=== PATIENT | male | born 1960 | race Caucasian/White ===

== ENCOUNTER 2017-07-08 03:11 | Emergency (ER) | payer SELFPAY ==
[~2017-07-08] VITALS: Ht 175.3 cm; Wt 99.9 kg
[2017-07-08 03:12] VITALS: BP 150/76; PULSE 99; RESP 16; TEMP 97.9; O2SAT 96
[2017-07-08] MEDS ORDERED: DICL75TA PO (03:34)
[2017-07-08] MEDS ORDERED: CYCL10TA PO (03:34)
--- NOTE | 2017-07-08 03:44 | PD ---
HPI Chief Complaint: Back/ Neck Pain or Injury Time Seen by Provider: 03:32 Travel History International Travel<30 days: No Contact w/Intl Traveler<30days: No Traveled to known affect area: No History of Present Illness HPI 57-year-old white male presents to emergency department for evaluation of a slip and fall the shower earlier this evening. He states that he had fallen back striking his head on a bottle of avocado shampoo. The patient states that he's having pain in his neck. He also had struck his left forearm and left mariano. He denies syncope. No nausea or vomiting. He states the pain is mild. Denies any focal numbness, tingling or weakness. PFSH Past Medical History Narrative Medical Bipolar, depression, neck injury with herniated disks Bipolar Disorder: Yes Depression: Yes Diminished Hearing: No Tetanus Vaccination: < 5 Years Past Surgical History Narrative Surgical Tonsillectomy Oral Surgery: Yes (WISDOM TEETH) Tonsillectomy: Yes Social History Alcohol Use: Yes Tobacco Use: No Substance Use: No Allergies-Medications (Allergen,Severity, Reaction): Coded Allergies: bee venom protein (honey bee) (Verified Allergy, Intermediate, Swelling, 07/08/17) Reported Meds & Prescriptions Reported Meds & Active Scripts Active Flexeril (Cyclobenzaprine HCl) 10 Mg Tab 10 Mg PO TID Diclofenac Sodium DR (Diclofenac Sodium) 75 Mg Tabdr 75 Mg PO BID Review of Systems General / Constitutional: No: Fever Eyes: No: Visual changes HENT: Positive: Neck Stiffness, Neck Pain, Other (mild dizziness), No: Headaches, Vertigo, Lightheadedness Cardiovascular: No: Chest Pain or Discomfort Respiratory: No: Shortness of Breath Gastrointestinal: No: Nausea, Vomiting, Diarrhea, Abdominal Pain Genitourinary: No: Dysuria Musculoskeletal: Positive: Pain, No: Myalgias, Arthralgias, Limited ROM, Weakness Skin: No Rash Neurologic: No: Weakness Psychiatric: No: Depression Endocrine: No: Polydipsia Hematologic/Lymphatic: No: Easy Bruising Physical Exam Narrative GENERAL: Well-developed, well-nourished in no apparent distress. Nontoxic appearing. Patient is joking with the nursing staff. He ambulates freely. He moves all his extremities in a coordinated fashion. Patient appears to be under the influence of alcohol. HEAD: Normocephalic, atraumatic. EYES: Pupils equal round and reactive. Extraocular motions intact. No scleral icterus. No injection or drainage. ENT: Nose clear. Throat without erythema, tonsillar hypertrophy or exudate. Uvula midline. Airway patent. NECK: Trachea midline. Supple, nontender, moves head freely. No central bony tenderness or spasm. CARDIOVASCULAR: Regular rate and rhythm without murmurs, gallops, or rubs. RESPIRATORY: Clear to auscultation. Breath sounds equal bilaterally. No wheezes , rales, or rhonchi. GASTROINTESTINAL: Abdomen soft, non-tender, nondistended. No hepato-splenomegaly , or palpable masses. No guarding. EXTREMITIES: No clubbing, cyanosis, or edema. No joint tenderness. There is a small abrasion to the left lower leg as well as the left forearm. BACK: Nontender without deformity. No flank tenderness. NEUROLOGICAL: Awake, alert and oriented x 3 .Cranial nerves grossly intact. Motor and sensory grossly within normal limits. Normal speech. Data Data Last Documented VS Vital Signs Date Time Temp Pulse Resp B/P (MAP) Pulse Ox O2 Delivery O2 Flow Rate FiO2 07/08/17 03:12 97.9 99 16 150/76 (100) 96 Room Air Orders Orders Spine, Cervical - Ltd (Ap&Lat) (07/08/17 03:32) Naproxen (Naprosyn) (07/08/17 03:45) Cyclobenzaprine (Flexeril) (07/08/17 03:45) Ed Discharge Order (07/08/17 03:57) MDM Medical Decision Making Medical Screen Exam Complete: Yes Emergency Medical Condition: Yes Medical Record Reviewed: Yes Interpretation(s) C-spine: Negative for acute fracture. Straightening of the cervical curvature. 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 Differential Diagnosis MDM: High Differential diagnoses: Fracture, sprain, strain, dislocation, contusion, neurovascular injury Narrative Course X-ray shows no acute fracture or subluxation. Patient given Naprosyn 500 mg and Flexeril 10 mg by mouth. This is cervical strain, status post fall Diagnosis Primary Impression: Cervical strain Qualified Codes: S16.1XXA - Strain of muscle, fascia and tendon at neck level , initial encounter Additional Impression: Fall Qualified Codes: W19.XXXA - Unspecified fall, initial encounter Patient Instructions: General Instructions Med/Other Pt SpecificInfo: Prescription(s) given Scripts Cyclobenzaprine (Flexeril) 10 Mg Tab 10 MG PO TID for Muscle Spasm, #21 TAB 0 Refills Prov: Emily Sanchez MD 07/08/[address] (Diclofenac Sodium DR) 75 Mg Tabdr 75 MG PO BID, #14 TAB 0 Refills Prov: Emily Sanchez MD 07/08/17 Disposition: 01 DISCHARGE HOME Condition: Stable Bhavin Jalloh Jul 08, 2017 03:44
[2017-07-08] MEDS ORDERED: NAPROXEN 500 MG TAB PO ONE (03:45)
[2017-07-08] MEDS ORDERED: CYCLOBENZAPRINE HCL 10 MG TAB PO ONE (03:45)
--- NOTE | 2017-07-08 04:09 | RADRPT ---
EXAM DATE/TIME: 07/08/2017 03:47 [facility] COMPARISON: No previous studies available for comparison. INDICATIONS : Pain in neck for 3 days. MEDICAL HISTORY : None. SURGICAL HISTORY : None. ENCOUNTER: Initial ACUITY: 3 days PAIN SCORE: 3/10 LOCATION: Bilateral neck FINDINGS: The cervical vertebral bodies are normal in height and normally aligned. There is disc space narrowin g and marginal osteophyte formation at the C4-C5 and C6-C7 levels. Prevertebral soft tissue swelling is not seen. There is uncovertebral hypertrophy at the C4-C5 level. CONCLUSION: Degenerative change. Sunil Castillo MD on July 08, 2017 at 4:05 Board Certified Radiologist. This report was verified electronically.
== END 2017-07-08 04:16 | disposition home or self-care (01) ==
LOC: NEPD 03:11
DX: S16.1XXA Strain of muscle, fascia and tendon at neck level, initial encounter (principal); W18.2XXA Fall in (into) shower or empty bathtub, initial encounter; Y93.E1 Activity, personal bathing and showering
CPT/HCPCS: 72040; 99284